=== PATIENT | female | born 1990 | race Two or more races ===

== ENCOUNTER 2017-06-21 15:06 | Emergency (ER) | payer MEDICAID, OTHER ==
[~2017-06-21] VITALS: Ht 162.6 cm; Wt 70.3 kg
[~2017-06-21 15:06] MED LIST: NORPTMEDS CO
[2017-06-21 16:07] LABS: Albumin 3.7 g/dL (3.4-5.0); Bilirubin, Total 0.3 mg/dL (0.2-1.0); Calcium 8.7 mg/dL (8.5-10.1); Potassium 3.4 mmol/L (3.5-5.1); Total Protein 7.7 g/dL (6.4-8.2)
[2017-06-21 16:43] LABS: Eosinophils # (auto) 0.1 uL; Hematocrit 37.5 % (36.0-46.0); Lymphocytes # (auto) 2.3 uL; Neutrophils # (auto) 6.2 uL; Nucleated Red Blood Cells % 0.1 %
[2017-06-21 16:46] LABS: Basophils # (auto) 0.1 uL; Basophils % (auto) 0.7 % (0.0-2.0); Eosinophils % (auto) 0.8 % (0.0-7.0); Hemoglobin 12.1 g/dL (12.2-16.2); Lymphocytes % (auto) 24.3 % (10.0-50.0); Mean Corpuscular Hemoglobin 25.4 pg (28.0-32.0); Mean Corpuscular Hgb Conc. 32.3 g/dL (32.0-36.0); Mean Corpuscular Volume 78.6 fL (80.0-100.0); Monocytes # (auto) 0.8 uL; Monocytes % (auto) 8.4 % (0.0-12.0); Neutrophils % (auto) 65.8 % (37.0-80.0); Platelet Count (auto) 379 10^3/uL (140-450); Red Blood Cells 4.77 10^6/uL (4.0-5.20); White Blood Cell 9.5 10^3/uL (4.4-10.8)
[2017-06-21 17:05] VITALS: BP 122/65
== END 2017-06-21 17:28 | disposition home or self-care (01) ==
LOC: ER 15:11
DX: O20.0 Threatened abortion (principal); O99.331 Smoking (tobacco) complicating pregnancy, first trimester; Z3A.01 Less than 8 weeks gestation of pregnancy
CPT/HCPCS: 36415; 76801; 76817; 80053; 84702; 85025

== ENCOUNTER 2021-08-04 18:07 | Emergency (ER) | payer BC, MEDICAID ==
[~2021-08-04] VITALS: Ht 167.6 cm; Wt 81.6 kg
[2021-08-04 19:55] VITALS: BP 106/70
[2021-08-04] MEDS ORDERED: ACETAMINOPHEN 500 MG TAB PO ONE (20:00)
[2021-08-04] MEDS ORDERED: IBUPROFEN 800 MG TAB PO ONE (20:00)
[2021-08-04] MEDS ORDERED: METHOCARBAMOL 500 MG TAB PO ONE (20:00)
[2021-08-04] MEDS ORDERED: METH500T22 PO (21:00)
[2021-08-04] MEDS ORDERED: IBUP800T27 PO (21:00)
== END 2021-08-04 22:08 | disposition home or self-care (01) ==
LOC: EDUNIT# 18:07 → ER 18:07 → EDBD 18:07 → ER 22:08
DX: S13.4XXA Sprain of ligaments of cervical spine, initial encounter (principal); R07.89 Other chest pain; Z88.0 Allergy status to penicillin; V43.52XA Car driver injured in collision with other type car in traffic accident, initial encounter; Y93.89 Activity, other specified; Y92.410 Unspecified street and highway as the place of occurrence of the external cause; Y99.8 Other external cause status
CPT/HCPCS: 71101